=== PATIENT | female | born 1975 | race Caucasian/White ===

== ENCOUNTER 2021-09-27 07:47 | Emergency (ER) | payer MEDICAID ==
[~2021-09-27] VITALS: Ht 172.7 cm; Wt 52.7 kg
[~2021-09-27 07:47] MED LIST: NO HOME MEDS
[2021-09-27] MEDS ORDERED: famotidine/PF 10 mg/ml inj IV ONE (08:20)
[2021-09-27] MEDS ORDERED: LORazepam 2 mg/ml vial IV ONE (08:20)
[2021-09-27] MEDS ORDERED: haloperidol lactate 5mg/ml inj IM ONE (08:20)
[2021-09-27] MEDS ORDERED: ondansetron/PF 4mg/2ml inj IV ONE (08:20)
[2021-09-27] MEDS ORDERED: normal saline 1000ML IV soln IV ONE (08:20)
[2021-09-27 08:56] LABS: ALBUMIN 4.5 G/DL (3.4-5.0); ANION GAP 12 (8-16); BILIRUBIN,TOTAL 0.8 MG/DL (0.1-1.0); BLOOD UREA NITROGEN 21 MG/DL (7-18); BUN/CREATININE RATIO 19.4 (6.6-38.0); CHLORIDE 101 MMOL/L (99-107); CREATININE 1.08 MG/DL (0.40-0.90); GLUCOSE 128 MG/DL (70-104); MAGNESIUM 2.1 MG/DL (1.5-2.4); SODIUM 140 MMOL/L (135-145); TOTAL CARBON DIOXIDE 26.7 MMOL/L (24-32); TOTAL PROTEIN 8.3 G/DL (6.4-8.2); eGFR 55 ML/MIN
[2021-09-27 08:57] LABS: ALANINE AMINOTRANSFERASE 37 U/L (12-78); ALBUMIN/GLOBULIN RATIO 1.2 (1.1-1.5); ALKALINE PHOSPHATASE 41 IU/L (46-116); ASPARTATE AMINO TRANSFERASE 20 U/L (10-37); BASOPHILS # (AUTO) 0.1 X10'3 (0-0.2); BASOPHILS % (AUTO) 0.6 % (0-1); EOSINOPHILS % (AUTO) 0.3 % (0-6); HEMATOCRIT 39.9 % (35.0-45.0); HEMOGLOBIN 13.5 g/dl (12.0-16.0); LYMPHOCYTES # (AUTO) 1.3 X10'3 (1.1-4.8); LYMPHOCYTES % (AUTO) 14.1 % (21-51); MEAN CORPUSCULAR HEMOGLOBIN 31.3 PG (27.0-31.0); MEAN CORPUSCULAR HGB CONC 33.7 g/dL (33.0-36.5); MEAN PLATELET VOLUME 9.7 FL (7.4-10.4); MONOCYTES # (AUTO) 0.6 X10'3 (0-0.9); NEUTROPHILS # (AUTO) 7.3 X10'3 (1.8-7.7); PLATELET COUNT 287 X10'3 (140-440); RED BLOOD COUNT 4.29 X10'6 (4.20-5.60); RED CELL DISTRIBUTION WIDTH 13.8 % (11.5-14.5); WHITE BLOOD COUNT 9.3 X10'3 (4.5-11.0)
[2021-09-27] MEDS ORDERED: ONDA4TAB6 PO (09:30)
[2021-09-27] MEDS ORDERED: PROC10TA10 RC (09:30)
[2021-09-27] MEDS ORDERED: PANT-47 PO (09:46)
[2021-09-27 11:39] VITALS: BP 166/75
== END 2021-09-27 12:20 | disposition home or self-care (01) ==
LOC: ER 07:48
DX: R11.15 Cyclical vomiting syndrome unrelated to migraine (principal); R11.2 Nausea with vomiting, unspecified; R10.10 Upper abdominal pain, unspecified; F12.90 Cannabis use, unspecified, uncomplicated; Z79.899 Other long term (current) drug therapy
CPT/HCPCS: 36415; 71045; 80053; 83735; 85025; 93005; 96372; 96374; 96375; 99285; J1630; J2060; J2405; J3490; J7030

== ENCOUNTER 2023-10-13 11:35 | Emergency (ER) | payer SELFPAY ==
[~2023-10-13] VITALS: Ht 162.6 cm; Wt 55.8 kg
[~2023-10-13 11:35] MED LIST changes: +ONDA4TAB6 PO; +PANT-47 PO; +PROC10TA97 RC
[2023-10-13 12:20] LABS: BASOPHILS % (AUTO) 0.3 % (0-1); EOSINOPHILS % (AUTO) 0.1 % (0-6); LYMPHOCYTES # (AUTO) 1.3 X10'3 (1.1-4.8); LYMPHOCYTES % (AUTO) 8.3 % (21-51); MEAN CORPUSCULAR HEMOGLOBIN 32.2 PG (27.0-31.0); MEAN CORPUSCULAR VOLUME 94.6 FL (78-98); MEAN PLATELET VOLUME 9.3 FL (7.4-10.4); MONOCYTES # (AUTO) 1.1 X10'3 (0-0.9); MONOCYTES % (AUTO) 6.9 % (2-12); NEUTROPHILS # (AUTO) 13.5 X10'3 (1.8-7.7); NEUTROPHILS % (AUTO) 84.4 % (42-75); PLATELET COUNT 340 X10'3 (140-440); RED BLOOD COUNT 4.65 X10'6 (4.20-5.60); RED CELL DISTRIBUTION WIDTH 13.6 % (11.5-14.5)
[2023-10-13] MEDS ORDERED: ibuprofen tablet 400 MG TABLET PO ONE (12:20)
[2023-10-13] MEDS ORDERED: normal saline 1000ML IV soln IVB ONE (12:20)
[2023-10-13] MEDS ORDERED: acetaminophen 325mg tablet PO ONE (12:20)
[2023-10-13] MEDS ORDERED: ondansetron/PF 4mg/2ml inj IV ONE (12:25)
[2023-10-13] MEDS ORDERED: haloperidol lactate 5mg/ml inj IM ONE (12:25)
[2023-10-13 12:32] LABS: ALANINE AMINOTRANSFERASE 36 U/L (12-78); ALBUMIN 5.1 G/DL (3.4-5.0); ALBUMIN/GLOBULIN RATIO 1.2 (1.1-1.5); ALKALINE PHOSPHATASE 48 IU/L (46-116); ANION GAP 7 (8-16); ASPARTATE AMINO TRANSFERASE 34 U/L (10-37); BILIRUBIN,TOTAL 0.9 MG/DL (0.1-1.0); BLOOD UREA NITROGEN 22 MG/DL (7-18); BUN/CREATININE RATIO 24.4 (10.0-20.0); CALCIUM 10.2 MG/DL (8.5-10.1); CHLORIDE 94 MMOL/L (99-107); GLUCOSE 139 MG/DL (70-104); LIPASE 95 U/L (16-77); POTASSIUM 3.5 MMOL/L (3.5-5.1); SODIUM 129 MMOL/L (135-145); TOTAL CARBON DIOXIDE 28.4 MMOL/L (24-32); TOTAL PROTEIN 9.2 G/DL (6.4-8.2); eCRCL 67 ML/MIN; eGFR 67 ML/MIN
[2023-10-13 13:11] LABS: BILIRUBIN,URINE NEGATIVE (Neg); CLARITY,URINE SLIGHTLY CLOUDY (Clear); COLOR,URINE YELLOW (Yellow); GLUCOSE, URINE NEGATIVE (Neg); KETONES,URINE TRACE mg/dl (Neg); LEUKOCYTE ESTERASE ,URINE NEGATIVE (Neg); NITRITES, URINE NEGATIVE (Neg); OCCULT BLOOD,URINE MODERATE (Neg); PROTEIN,URINE TRACE mg/dl (Neg); UROBILINOGEN,URINE 0.2 E.U/dL (0.2-1.0)
[2023-10-13 13:13] LABS: URINE HCG NEGATIVE (NEG)
[2023-10-13 13:14] LABS: UA COLLECTION TYPE CLN CATCH MIDSTREAM
[2023-10-13 13:22] LABS: BACTERIA,URINE 4+ /HPF (Neg); MUCUS STRANDS MODERATE /LPF (Neg); SQUAMOUS EPITHELIAL CELL,UR MANY /LPF (FEW)
[2023-10-13 13:53] LABS: URINE AMPHETAMINE SCREEN NEGATIVE (Neg); URINE BARBITUATE SCREEN NEGATIVE (Neg); URINE BENZODIAZEPINES SCREEN NEGATIVE (Neg); URINE CANNABINOID SCREEN POSITIVE (Neg); URINE COCAINE SCREEN NEGATIVE (Neg); URINE METHADONE SCREEN NEGATIVE (Neg); URINE OPIATE SCREEN NEGATIVE (Neg); URINE PHENCYCLIDINE SCREEN NEGATIVE (Neg)
[2023-10-13 14:05] VITALS: BP 113/65; PULSE 77; RESP 16; TEMP 98.9; O2SAT 97
== END 2023-10-13 14:08 | disposition home or self-care (01) ==
LOC: ER 11:35
DX: R11.2 Nausea with vomiting, unspecified (principal); F12.10 Cannabis abuse, uncomplicated; R10.9 Unspecified abdominal pain
CPT/HCPCS: 36415; 80053; 80305; 81001; 81025; 83690; 85025; 96361; 96372; 96374; 99284; J1630; J2405; J7030

== ENCOUNTER 2025-04-25 09:57 | Emergency (ER) | payer MEDICAID ==
[~2025-04-25] VITALS: Ht 162.6 cm; Wt 56.8 kg
[2025-04-25 10:04] VITALS: BP 99/44; PULSE 66; TEMP 98.3; O2SAT 98
[2025-04-25 10:16] VITALS: RESP 18
--- NOTE | 2025-04-25 10:34 | Physician Documentation ---
History of Present Illness Chief Complaint: Vomiting Stated Complaint: UTI, N/V Time Seen by MD: 10:14 Primary Medical Doctor: [facility] HPI 41-year-old female presents to the ED with a complaint of ongoing UTI symptoms which she is being treated for via Macrobid. She states that after taking the initial antibiotics she developed increased nausea and vomiting for the last 2 days she also adds that she is a regular marijuana user but does not ingest large amounts of marijuana daily. She has had previous bouts of the symptoms when she has been stressed. Zorocio does not work for her Medication Reconciliation Allergies: Coded Allergies: No Known Allergies (Unverified , 10/13/23) Scheduled Cephalexin*Monohydrate* (Keflex*), 1 CAP PO QID Ondansetron Hcl (Zofran), 1 TAB PO Q6H Pantoprazole Sodium (PROTONIX tablet), 1 TAB PO DAILY Scheduled PRN Prochlorperazine Maleate (Prochlorperazine Maleate), 1 SUPP.RECT RC Q8H PRN for nausea/vomiting Prochlorperazine Maleate (Compazine), 1 TAB PO QID PRN PRN for nausea/vomiting Miscellaneous Medications Home Med List (No Home Medications), (Reported) Past Medical History Past Medical History: No Pertinent History Past Surgical History: noncontributory Alcohol Use: None Drug Use: marijuana Review of Systems All Other Systems at this time: Reviewed and Negative ROS As stated above in the HPI, otherwise all systems are reviewed and negative. Physical Exam Vital Signs: Temperature: 98.3, Source: Temporal, Heart Rate: 66, Respiratory Rate: 18, BP: 99/44, Pulse Oximetry: 98, Weight: 56.800 Physical Exam General: Alert, no apparent distress. Respiratory: Lungs clear, no respiratory distress. Chest: No accessory muscle use. Cardiovascular: Regular rate and rhythm, no murmurs. Gastrointestinal: Soft, nontender, nondistended. Bowels sounds present. Neurologic: Oriented x4. Psychiatric: Normal mood and affect. Skin: Normal color, warm and dry. No edema, no ecchymosis. Progress Results/Orders Results/Orders Orders - ASAD KUMAR LOCKMAKER Urinalysis, Cult If Indicated (04/25/25 10:27) Hcg, Ur Ql (04/25/25 10:27) Cbc/Diff (04/25/25 10:27) BMP (04/25/25 10:27) Lipase (04/25/25 10:27) CMP (04/25/25 10:27) Completed Orders - ASAD KUMAR LOCKMAKER Normal Saline 1000ml (Sodium Chloride 10 (04/25/25 10:30) Haloperidol Lact. (Haldol) (04/25/25 10:30) Metoclopramide Inj (Reglan Inj) (04/25/25 10:30) Diphenhydramine Inj (Benadryl Inj.) (04/25/25 10:30) Vital Signs 04/25/25 04/25/25 10:04 10:16 Temp 98.3 Pulse 66 Resp 18 18 B/P (MAP) 99/44 Pulse Ox 98 Medical Decision Making Differential Dx:Considerations: Include: AAA, -Complete, - Incomplete, -Inevitable, -Missed, -Threatened, Abruptio placentae, Angina/AL, Aortic dissection, Appendicitis, Bowel obstruction, Cholangitis, Cholelithasis, Constipation, Diverticular disease, Esophageal rupture, Esophagitis, Gastritis/PUD, Gastroenteritis, GI hemorrhage, Hernia, Hepatitis, Inflammatory BD, Ischemic bowel, Ovarian cyst/torsion, Pancreatitis, PID, Porphyria, Trauma, intraabdominal, Urinary obstruction, Urinary tract infection, Urolithiasis, Other Departure Disposition: 01 HOME / SELF CARE / HOMELESS Impression: Primary Impression: Cyclic vomiting syndrome Additional Impression: UTI (urinary tract infection) Condition: Stable Discharge Instructions: Urinary Tract Infection, Adult, [id number] Referrals: NO PRIMARY CARE PROVIDER (PCP) Prescriptions Prochlorperazine Maleate (Compazine) 10 Mg Tablet 1 TAB PO QID PRN PRN for nausea/vomiting, #12 TAB Prov: ASAD KUMAR LOCKMAKER 04/25/25 Cephalexin*Monohydrate* (Keflex*) 500 Mg Capsule 1 CAP PO QID, #40 CAP Prov: ASAD KUMAR LOCKMAKER 04/25/25 Signature Scribe Signature: r Attestation: Scribed for Asad Kumar Airframe Technician by Asad Asif NP . 04/25/25 18:23 ASAD KUMAR LOCKMAKER Apr 25, 2025 10:34
[2025-04-25] MEDS: normal saline 1000ML IV soln IVB ONE (10:47)
[2025-04-25] MEDS: diphenhydrAMINE 50 mg/ml inj IV ONE (10:48)
[2025-04-25] MEDS: metoclopramide 5 mg/ml inj IV ONE (10:49)
[2025-04-25] MEDS: haloperidol lactate 5mg/ml inj IM ONE (10:49)
[2025-04-25 11:16] LABS: BASOPHILS % (AUTO) 0.2 % (0-1); EOSINOPHILS % (AUTO) 0 % (0-6); HEMATOCRIT 40.9 % (35.0-45.0); HEMOGLOBIN 13.8 g/dl (12.0-16.0); LYMPHOCYTES # (AUTO) 0.6 X10'3 (1.1-4.8); LYMPHOCYTES % (AUTO) 5.6 % (21-51); MEAN CORPUSCULAR HEMOGLOBIN 31.7 PG (27.0-31.0); MEAN CORPUSCULAR HGB CONC 33.7 g/dL (33.0-36.5); MEAN PLATELET VOLUME 8.9 FL (7.4-10.4); MONOCYTES # (AUTO) 0.3 X10'3 (0-0.9); NEUTROPHILS # (AUTO) 9.1 X10'3 (1.8-7.7); NEUTROPHILS % (AUTO) 91.2 % (42-75); PLATELET COUNT 280 X10'3 (140-440); RED BLOOD COUNT 4.35 X10'6 (4.20-5.60); RED CELL DISTRIBUTION WIDTH 13.7 % (11.5-14.5); WHITE BLOOD COUNT 9.9 X10'3 (4.5-11.0)
[2025-04-25 11:35] LABS: ALANINE AMINOTRANSFERASE 136 U/L (12-78); ALBUMIN 4.3 G/DL (3.4-5.0); ALBUMIN/GLOBULIN RATIO 1.1 (1.1-1.5); ALKALINE PHOSPHATASE 73 IU/L (46-116); ANION GAP 11 (8-16); ASPARTATE AMINO TRANSFERASE 56 U/L (10-37); BILIRUBIN,TOTAL 0.9 MG/DL (0.1-1.0); BLOOD UREA NITROGEN 18 MG/DL (7-18); BUN/CREATININE RATIO 17.6 (10.0-20.0); CALCIUM 9.3 MG/DL (8.5-10.1); CHLORIDE 102 MMOL/L (99-107); CREATININE 1.02 MG/DL (0.40-0.90); GLUCOSE 131 MG/DL (70-104); LIPASE 41 U/L (16-77); POTASSIUM 4.2 MMOL/L (3.5-5.1); SODIUM 142 MMOL/L (135-145); TOTAL CARBON DIOXIDE 28.6 MMOL/L (24-32); TOTAL PROTEIN 8.1 G/DL (6.4-8.2); eCRCL 58 ML/MIN; eGFR 58 ML/MIN
[2025-04-25] MEDS ORDERED: CEPH-585 PO (11:51)
[2025-04-25] MEDS ORDERED: PROC-8 PO (11:51)
== END 2025-04-25 12:25 | disposition home or self-care (01) ==
LOC: ER 09:58
DX: R11.15 Cyclical vomiting syndrome unrelated to migraine (principal); N39.0 Urinary tract infection, site not specified; F12.90 Cannabis use, unspecified, uncomplicated; Z79.899 Other long term (current) drug therapy
CPT/HCPCS: 36415; 80053; 83690; 85025; 96361; 96372; 96374; 96375; 99284; A6258; J1200; J1630; J2765; J7030